=== PATIENT | female | born 1970 | race Caucasian/White ===

== ENCOUNTER 2019-02-26 10:32 | Day surgery (SDC) | payer OTHER, SELFPAY ==
--- NOTE | 2019-02-24 17:12 | PCM.HP.BLA ---
History and Physical Date of Admission: 02/26/19 Pre-Op History and Physical ? HPI: The patient is a 49 year old female presenting for pre-operative visit. She is scheduled for?hysteroscopy, dilation and curettage, possible polyp resection, for?menorrhagia, iron deficiency anemia due to chronic blood loss and thickened endometrial lining on ultrasound on?02/26/19. ??Procedure discussed along with risks, benefits and complications. ?Other alternatives discussed for management. Consent form signed??Yes.? PAST?MEDICAL?HISTORY PAST MEDICAL HISTORY Diagnosis Date ? Excessive or frequent menstruation ? ? Heavy periods ? FRACTURE 2002 ? WRIST ? Gestational diabetes 01/28/2013 ? Iron deficiency anemia 07/24/2011 ? Other and unspecified ovarian cyst ? ? Ovarian cyst ? Papanicolaou smear of cervix with atypical squamous cells cannot exclude high grade squamous intraepithelial lesion (ASC-H) ? ? Rubella non-immune status ? ? Spontaneous miscarriage 03/2012 ? ? PAST?SURGICAL?HISTORY PAST SURGICAL HISTORY Procedure Laterality Date ? DELIVERY ONLY ? 04/15/13 ? , low transverse ? COLPOSCOPY (VAGINOSCOPY) ? 07/21/2008 ? Colposcopy ? ENDOMETRIAL BIOPSY ? 06/23/2008 ? LIGATE FALLOPIAN TUBE ? 04/15/13 ? Tubal ligation ? ? CURRENT?MEDICATIONS Current Outpatient Medications Medication Sig Dispense Refill ? PNV no.95/ferrous fum/folic ac ( ORAL) Take by mouth. ? ? ? norethindrone (AYGESTIN) 5 mg tablet Take 1 tablet TID until bleeding stops, the 1 tablet BID x 3 days, then 1 tablet daily x 3 days 35 tablet 0 ? FERROUS SULFATE (FE-TABS ORAL) Take by mouth as needed. ferosol ? No current facility-administered medications for this visit.? ? ALLERGIES:?Patient has no known allergies. ? PERSONAL HISTORY:? 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 control/protection: Tubal Ligation ??Lifestyle ?Physical activity: ?Days per week: Not on file ?Minutes per session: Not on file ?Stress: Not on file ??Relationships ?Social connections: ?Talks on phone: Not on file ?Gets together: Not on file ?Attends latter day service: Not on file ?Active member of club or organization: Not on file ?Attends meetings of clubs or organizations: Not on file ?Relationship status: Not on file ?Intimate partner violence: ?Fear of current or ex partner: Not on file ?Emotionally abused: Not on file ?Physically abused: Not on file ?Forced sexual activity: Not on file ??Other Topics ?Concerns: ?Not on file ??Social History Narrative ?Not on file ? FAMILY HISTORY:? FAMILY?HISTORY FAMILY HISTORY Problem Relation Age of Onset ? Diabetes Mother ?Type 2 ? Thyroid Mother ? ? Hypertension Father ? ? No Known Problems Sister ? ? No Known Problems Sister ? ? No Known Problems Brother ? ? No Known Problems Son ? ? No Known Problems Son ? ? Breast Cancer Maternal Grandmother ? ? Diabetes Maternal Grandmother ?Type 2 ? Colon Cancer Maternal Grandfather ? ? Alzheimer's Disease Paternal Grandfather ? ? No Known Problems Son ? ? REVIEW OF SYMPTOMS: GENERAL: denies fevers or chills ENDOCRINOLOGY: has not been on steroids Cardiology : denies palpitations or chest pain Respiratory: denies SOB or cough Hematology: denies history of prolonged bleeding or easy bruising or VTE Allergy: Denies history of personal or family history of allergy to anesthesia ? ? PHYSICAL EXAMINATION: ? VITALS:?Height 5' 7 (1.702 m), weight 204 lb (92.5 kg), last menstrual period 02/22/2019. ? GENERAL:??The patient is well nourished, well hydrated in no acute distress. ?, The patient is oriented to time, place, and person. LUNGS:?Clear to auscultation bilaterally. no wheezes, rhonchi or rales HEART:?Regular rate and rhythm, Normal heart sounds and No murmurs or gallops ? IMPRESSION:?Metromenorrhagia, iron deficiency anemia due to chronic blood loss, thickened endometrium on ultrasound ? PLAN:???The risks/benefits/alternatives and personal involved for the planned?hysteroscopy, dilation and curettage and possible polyp resection?were reviewed with the patient. Her questions were answered to her satisfaction and she desires to proceed. ?Consent was signed. ?I reviewed with her postop instructions and expectations. ? ? I have reviewed and updated past medical and surgical history, medications and allergies? This history and physical was completed in my office on 02/24/2019 Marleni Prescott M.D.
--- NOTE | 2019-02-26 | EMB_PTH ---
PATIENT: ELISE BRITO LOC: [facility] [place][id number] AGE/SX: 49/F ROOM: RE02/26/[address]: Dr. Marleni Prescott MD : 1970 BED: DIS: 02/26/2019 SPEC #: [id number] RECD: 02/26/19 15:50 STATUS: MICHAEL BULLOCK #: [id number] TYLER: 02/26/19 00:[address]: Marleni Prescott DEPT: SURGICAL PATHOLOGY RECD BY: Carrillo Anne ENTERED: 02/27/19 08:51 SP TYPE: ENDOM BX/C MENG DR: Dr. Benito Duff III, MD Tissues: Endometrium, NOS Procedures: Surgery Specimen Level IV HEADER OPERATION: Hysteroscopy, dilation and curettage PRE-OP DIAGNOSIS: Metromenorrhagia, iron deficiency anemia due to chronic blood loss, thickened endometrium on ultrasound TISSUE SUBMITTED: Endometrial curettings MICROSCOPIC DIAGNOSIS Endometrial curettings: Dyssynchronous endometrium consisting of early secretory endometrium and mildly disordered proliferative endometrium with extensive granular stromal breakdown. Fragments of benign ecto and endocervical epithelium. KAREEM:amrita 03/02/19 MICROSCOPIC DESCRIPTION Slides are reviewed. GROSS DESCRIPTION Received in formalin is one container labeled with the patient name and designated endometrial curettings. The specimen consists hemorrhagic soft tissue measuring in aggregate 5 x 3 x 0.3 cm. The specimen is totally submitted in 2 cassettes. /KAREEM:amrita 02/27/19 TC: 5 CPT: 73843
[2019-02-26 11:06] VITALS: BP 143/73; PULSE 83; RESP 16; TEMP 37.2; O2SAT 99; BMI 31.8
[2019-02-26 11:19] LABS: Internal QC Validated? YES +Cl - CLEAR BKGD; Pregnancy, Urine Negative Negative
[2019-02-26] MEDS: Lactated Ringers 1,000 ML 100 ML IV (11:19)
--- NOTE | 2019-02-26 14:06 | DCINST_ITS ---
Discharge Diet: No Restrictions Discharge Activity: Return to Normal Activity, May Shower, May Take a Tub Bath - in 2 weeks. May resume sexual activity in: 1 week Call your doctor if your incision/area has: Sudden Increased Bleeding, Foul Smelling Discharge Call your doctor if you observe: Fever of 101 or Higher, Using more than one pad per hour - for 2 hrs in a row Allergies/Adverse Reactions: Allergies No Known Allergies Allergy (Verified 02/26/19 11:05) Medications to take at Discharge Ferrous Sulfate 325 mg PO BID #60 tablet. 02/22/17 Pnv No.95/Ferrous Fum/Folic AC [ Caplet] 1 ea PO DAILY 02/25/19 Ibuprofen [Motrin] 600 mg PO Q6H PRN #60 tab 02/26/19 The following prescriptions were given: Ibuprofen [Motrin] 600 mg PO Q6H PRN #60 tab PRN Reason: Pain Transmission Status: Pending to [facility] Primary Care Physician: Benito Duff III, MD [Primary Care Provider] - Test Results: Test results from this visit will be discussed in further detail at your follow- up appointment, if applicable. Please Follow Up With: Marleni Prescott MD - [phone] When: 2-4 weeks or as needed
--- NOTE | 2019-02-26 14:07 | PCM.OPRPT ---
Report of Operation Date of Procedure: 02/26/19 Pre-Operative Diagnosis: menorrhagia, fe def anemia due to chronic blood loss Post-Operative Diagnosis: same Surgery/Procedure Performed:: hysteroscopy D&C Description of Surgical Findings:: lush Endometrium, normal-appearing cervix. prolapse of the cervix to 2 cm beyond the hymenal ring. Uterus sounded to 11 cm possible small polypoid appearing lesion in the left fundal area. 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 The weighted speculum was placed in the vagina and the anterior lip of the cervix was grasped with a single-tooth tenaculum. A paracervical block was administered with 15 cc of 1% lidocaine with 1-100,000 epinephrine solution. The cervix was dilated serially with Hegar dilators. The 5mm hysteroscope was placed into the uterine cavity and the above findings were noted. Bilateral tubal ostia were identified. The hysteroscope was removed. A gentle sharp curettage was done of the uterine cavity. The small polypoid lesion was removed with they hysteroscopic grasper under direct visualization. The instruments were removed from the vagina. The specimen was handed off and sent to pathology. All sponge and needle counts were correct. Vaginal sweep was performed by me. The patient was awakened and taken to the recovery room in stable condition. Hysteroscopic ins: 500cc normal saline Hysteroscopic outs:300cc Findings: Endometrial cavity: lush endometrium, no fibroids noted, small polypoid lesion left upper fundus Cervix: [normal] Vagina: [normal] Grafts/Implants Used: none - Complications none - Admit VTE Documentation VTE Present on Admission: No VTE Mechan Device Prophylaxis: SCD's VTE Pharm Prophylaxis ordered?: No Reason prophylaxis not ordered:: Procedure Not Indicated
[2019-02-26 14:10] VITALS: BP 101/67; BP 143/73; PULSE 85; RESP 16; TEMP 37.1; O2SAT 97
[2019-02-26 14:15] VITALS: BP 143/73; BP 98/68; PULSE 84; RESP 18; O2SAT 97
[2019-02-26 14:20] VITALS: BP 100/62; BP 143/73; PULSE 84; RESP 18; O2SAT 97
[2019-02-26 14:25] VITALS: BP 102/65; BP 143/73; PULSE 82; RESP 18; TEMP 36.7; O2SAT 97
[2019-02-26 14:57] VITALS: BP 143/73
== END 2019-02-26 15:22 | disposition home or self-care (01) ==
LOC: SDC 10:36 → AC 10:38
PROVIDERS: Family Provider Family Medicine; PCP Family Medicine; Referring Provider Obstetrics & Gynecology; Visit Provider Obstetrics & Gynecology
PROC: 0UDB8ZZ Extraction of Endometrium, Via Natural or Artificial Opening Endoscopic (ICD-10-PCS; CPT 58558; principal; 2019-02-26 11:50)
DX: N92.1 Excessive and frequent menstruation with irregular cycle (principal); R93.89 Abnormal findings on diagnostic imaging of other specified body structures; D50.0 Iron deficiency anemia secondary to blood loss (chronic); Z79.899 Other long term (current) drug therapy
CPT/HCPCS: 00952; 58558; 81025; 88305; J1756; J7120; J2405

== ENCOUNTER 2021-05-31 17:33 | Emergency (ER) | payer OTHER, SELFPAY ==
[2021-05-31 17:34] VITALS: BP 144/106; PULSE 123; RESP 16; TEMP 36.6; O2SAT 93; BMI 32.1
[2021-05-31 17:38] VITALS: BP 144/97; PULSE 118; RESP 18; TEMP 36.6; O2SAT 93
--- NOTE | 2021-05-31 17:49 | RAD_ITS ---
STUDY: X-RAY CHEST REASON FOR EXAM: Female, 51 years old. cough TECHNIQUE: Frontal portable view of the chest COMPARISON: None. FINDINGS: Pulmonary volumes are low and there are multifocal irregular airspace opacities. There is no pneumothorax, pulmonary edema or pleural effusions. Serene are enlarged. RAD/Chest 1 View (Portable) IMPRESSION: Covid pneumonia. Possibly pulmonary arterial hypertension. Pulmonary referral advised. Electronically Signed: Toby Peck MD at 19:44 EST Tel , Service support ,
--- NOTE | 2021-05-31 17:49 | EKG12_ITS ---
Test Reason : CP Blood Pressure : / mmHG Vent. Rate : 106 BPM Atrial Rate : 106 BPM P-R Int : 152 ms QRS Dur : 078 ms QT Int : 338 ms P-R-T Axes : 034 002 031 degrees QTc Int : 448 ms Sinus tachycardia Otherwise normal ECG Confirmed by LEAH CAMPBELL, NAVNEET ([id number]), editor index NEREIDA ACOSTA ([id number]) on 06/02/2021 11:43:32 AM Referred By: DANIE Confirmed By:NAVNEET LYNN MD
--- NOTE | 2021-05-31 17:55 | NURSING ---
NO OLD EKGS
[2021-05-31 18:22] LABS: Absolute Lymphocyte Count 1.02 X10^3/uL (0.83-4.51); Absolute Neutrophil Count 1.7 X10^3/uL (2.0-7.7); Basophil# 0.02 X10^3/uL; Basophil% 0.6 % (0-1); Eosinophil# 0.04 X10^3/uL; Eosinophils% 1.2 % (0-5); Hematocrit 41.9 % (37-47); Hemoglobin 14.2 g/dL (12.0-15.0); Lymphocyte # 1.02 X10^3/ul (0.83-4.51); Lymphocyte % 30.4 % (19-41); Mean Corp Hgb Conc 33.9 g/dL (32-36); Mean Corpuscular Hgb 28.5 pg (27.0-32.0); Mean Corpuscular Volume 84.1 fL (81-99); Mean Platelet Vol. 10.4 fl (6.2-12.0); Monocyte# 0.54 X10^3/uL; Monocyte% 16.1 % (0-10); NRBC Flagged by Analyzer 0 % (0-5); Neutrophil # 1.72 X10^3/uL (2.7-7.7); Neutrophil % 51.1 % (47-70); POSITIVE MORPHOLOGY YES; Platelet Count 307 K/mm3 (150-450); RBC Distribution Width CV 13.1 % (11.6-14.6); RBC Distribution Width SD 40.2 fl (35.1-43.9); Red Blood Count 4.98 M/mm3 (4.2-5.4); White Blood Count 3.4 K/mm3 (4.4-11.0)
[2021-05-31 18:24] VITALS: O2SAT 94
[2021-05-31 18:24] LABS: Differential Indicated SCAN CRITERIA MET
[2021-05-31 18:38] VITALS: BP 128/93; PULSE 104; RESP 21; TEMP 36.4; O2SAT 93
[2021-05-31 18:41] LABS: ALB/GLOB Ratio 0.5 RATIO (0.9-2.4); AST(SGOT) 24 U/L (15-37); Alanine Aminotransfer ALT/SGPT 23 U/L (13-56); Albumin, Serum 2.7 g/dL (3.2-5.0); Alkaline Phosphatase 89 U/L (45-117); Anion Gap 11 (5-15); BUN 17 mg/dL (7-18); BUN/Creat Ratio 23.2 RATIO (10-20); Calcium,Total 9.3 mg/dL (8.5-10.1); Chloride 100 mmol/L (98-107); Creatinine, Serum 0.73 mg/dL (0.55-1.02); EST Glomerular Filtration Rate 90 mL/min (>60); Est Glom Filt Rate - Afr Amer 109 mL/min (>60); Estimated Creatinine Clearance 90.65 ml/min; Glucose 150 mg/dL (74-106); Potassium 3.2 mmol/L (3.5-5.1); Protein, Total 7.7 g/dL (6.4-8.2); Sodium Level 139 mmol/L (136-145); Troponin-I HS 4 pg/mL (3.0-54.0)
[2021-05-31 18:51] LABS: Differential Comment SCANNED; Reactive Lymphocyte 1+
--- NOTE | 2021-05-31 19:01 | CT_ITS ---
STUDY: CTA CHEST REASON FOR EXAM: Female, 51 years old. chets pain RADIATION DOSAGE (If Supplied By Facility): CTDIvol = ( 11.26 ) mGy, DLP = ( 457.70 ) mGycm TECHNIQUE: The examination was performed with the intravenous administration of IV 100mL Isovue-300. Post-processing of the angiographic images was performed, with multiplanar reformation and 3D reconstruction. Individualized dose optimization techniques were used for this CT. COMPARISON: None. FINDINGS: There are multifocal interstitial infiltrates with groundglass opacities in the upper and lower lobes as well as more pronounced focal consolidation in the lower lobes consistent with Covid 19 pneumonia Normal enhancement of the main pulmonary artery and right and left pulmonary arteries. Normal enhancement of the bilateral peripheral pulmonary arteries. There is no demonstrated pulmonary embolism. Minor atherosclerotic changes of the aorta without evidence for aneurysm There is no demonstrated aortic dissection. Normal heart and pericardium. Normal mediastinum. Normal hilar regions. Normal visualized trachea and bronchi. Normal pleura. Normal chest wall structures. Dorsal spine demonstrates degenerative change Multiple tiny calcified gallstones without evidence for acute inflammation. Nonspecific fatty infiltrated liver. CT/CTA Chest W/WO Contrast IMPRESSION: Findings consistent with Covid 19 pneumonia within both upper and lower lobes. No evidence for pulmonary embolus Incidental finding of cholelithiasis without evidence for acute inflammation Electronically Signed: Jeremy Flores MD at 20:35 EST , Service support ,
--- NOTE | 2021-05-31 19:11 | EDS_ITS ---
HPI History of Present Illness Chief Complaint: Shortness of Breath Narrative Narrative: 51-year-old female presenting with chest discomfort and shortness of breath. She states her chest gets tight when she starts to ambulate. She states is also been sick for a month. Initially she had fevers, chills, body aches. She states that on the she tested for Covid and had a positive and a negative test. She has quarantine. She is day 10 since that time. She states all of her symptoms resolved. She states he only has a medical history of iron deficiency anemia. She also states this is recurrent. She denies cardiac history. She is non-smoker. She denies any pulmonary history. [facility] Medical History Anemia Gestational diabetes Gestational HTN Home Medications ferrous sulfate 325 mg PO BID #60 tablet. 02/22/17 [Rx Last Taken Unknown] Allergy/AdvReac Type Severity Reaction Status Date / Time No Known Allergies Allergy Verified 05/31/21 17:38 Social History Smoking Status: Never smoker ROS ROS ED Constitutional Constitutional ED: Denies chills or fever(s) Eyes Eyes: Denies blurry vision or change in vision ENT ENT ED: Denies rhinorrhea or sore throat Cardiovascular Cardiovascular: Denies chest pain or palpitations Respiratory/Chest Respiratory/Chest: Reports cough, dyspnea and dyspnea on exertion Gastrointestinal Gastrointestinal: Denies abdominal pain, nausea or vomiting Genitourinary Genitourinary ED: Denies dysuria or hematuria Musculoskeletal Musculoskeletal: Denies arthralgias or myalgias Integumentary Denies abscess or rash Neurologic Neurologic: Denies headache(s) or paresthesias EXAM Physical Exam Const Vital Signs: 05/31/21 17:34 05/31/21 17:38 05/31/21 18:24 Temperature 97.8 F 97.8 F Temperature Source Temporal Oral Pulse Rate 123 H 118 H Respiratory Rate 16 18 Respiratory Effort Non-Labored Short of Breath Respiratory Depth Normal Respiratory Pattern Normal Blood Pressure 144/106 H 144/97 H Blood Pressure Mean 118 112 Pulse Ox 93 93 Oxygen Delivery Method Room Air Room Air Room Air 05/31/21 18:38 05/31/21 21:05 Temperature 97.5 F L 99.2 F H Temperature Source Temporal Temporal Pulse Rate 104 H 88 Respiratory Rate 21 H 19 H Respiratory Effort Respiratory Depth Respiratory Pattern Blood Pressure 128/93 H 132/70 H Blood Pressure Mean 104 90 Pulse Ox 93 97 Oxygen Delivery Method Room Air Room Air Positive well nourished General Appearance ED: NAD; Negative for pallor HEENT Reports moist mucous membranes atraumatic Eyes PERRL and EOMs intact bilaterally Resp normal respiratory effort and clear to auscultation bilaterally Cardio regular rate Rate: bradycardia GI non-tender and non-distended Palpation: soft Neuro oriented x3 and CN's II-XII intact bilaterally Sensorium / Orientation: alert Psych mental status grossly normal Thought Process: normal thought process Skin General Skin Exam: Negative for jaundice or pallor MDM MDM MDM Narrative Medical decision making narrative: Patient presenting with chest tightness on ambulation. She is on day 10 of positive Covid testing. She also states that she has been sick for a month and she is unclear when she started getting sick. Her fevers and chills have resolved. She does not have any more nausea or vomiting and she feels otherwise well except for chest tightness with exertion. Her EKG on my interpretation shows a sinus tachycardia with a ventricular to 106 bpm without sign of ischemic change. Chest x-ray on my interpretation shows pulmonary infiltrates consistent with COVID-19. Radiologist agree. CBC shows that she is leukopenic and lymphopenic. Creatinine is normal. Potassium slightly low at 3.2. LFTs are normal. High-sensitivity troponin is 4. Patient is maintaining oxygen sats of 93% steadily. She does not appear to be dyspneic or in any distress. Given her atypical chest pain and shortness of breath I did obtain a CTA which did not show pulmonary emboli. It does show pulmonary infiltrates consistent with COVID-19 on the radiologist interpretation. Given that patient is not hypoxic and not requiring oxygen I think she stable for discharge at this time. She will follow-up with her PCP to ensure resolution. She is given return precautions. Impression: 1. COVID-19 pneumonitis 2. Chest pain Lab Data Labs: Laboratory Results - last 24 hr 05/31/21 05/31/21 18:10 18:10 WBC 3.4 L RBC 4.98 Hgb 14.2 Hct 41.9 MCV 84.1 MCH 28.5 MCHC 33.9 RDW Std Deviation 40.2 RDW Coeff of Mindy 13.1 Plt Count 307 MPV 10.4 Immature Gran % (Auto) 0.600 Neut % (Auto) 51.1 Lymph % (Auto) 30.4 [place] % (Auto) 16.1 H Eos % (Auto) 1.2 Baso % (Auto) 0.6 Absolute Neuts (auto) 1.7 L Absolute Lymphs (auto) 1.02 Nucleated RBC % 0 Differential Comment SCANNED Reactive Lymphocytes 1+ Sodium 139 Potassium 3.2 L Chloride 100 Carbon Dioxide 28.0 Anion Gap 11 BUN 17 Creatinine 0.73 Estim Creat Clear Calc 90.65 Est GFR (MDRD) Af Amer 109 Est GFR (MDRD) Non-Af 90 BUN/Creatinine Ratio 23.2 H Glucose 150 H Calcium 9.3 Total Bilirubin 0.30 AST 24 ALT 23 Alkaline Phosphatase 89 Troponin I High Sens 4 Total Protein 7.7 Albumin 2.7 L Globulin 5.0 H Albumin/Globulin Ratio 0.5 L Radiography Diagnostic Testing: Clinical Impression(s) from Imaging Studies Chest X-Ray 05/31/21 17:49 IMPRESSION: Covid pneumonia. Possibly pulmonary arterial hypertension. Pulmonary referral advised. Electronically Signed: Toby Peck MD at 19:44 EST Tel , Service support , Chest CTA 05/31/21 19:01 IMPRESSION: Findings consistent with Covid 19 pneumonia within both upper and lower lobes. No evidence for pulmonary embolus Incidental finding of cholelithiasis without evidence for acute inflammation Electronically Signed: Jeremy Flores MD at 20:35 EST , Service support , Discharge Plan Triage Chief Complaint: Shortness of Breath ED Provider: Arnie Layton Dx/Rx/DC Orders Instructions: Coronavirus Disease 2019 (COVID-19): Caring for Yourself or Others Prescriptions: No Action ferrous sulfate 325 MG tablet,delayed release (DR/EC) 325 mg PO BID Qty: 60 RF: 1 Primary Care Provider: Care Physician,No Primary Referrals: Radha Aguirre DO [STAFF PHYSICIAN] - As soon as possible Care Physician,No Primary [Primary Care Provider] - Disposition Disposition: Home, Self Care Discharge Date/Time: 05/31/21 21:06
[2021-05-31 21:05] VITALS: BP 132/70; BP 132/97; PULSE 80; PULSE 88; RESP 19; TEMP 37.3; O2SAT 97
== END 2021-05-31 21:06 | disposition home or self-care (01) ==
PROVIDERS: Emergency Provider Student in an Organized Health Care Education/Training Program
DX: U07.1 COVID-19 (principal); J12.82 Pneumonia due to coronavirus disease 2019; R07.89 Other chest pain; D50.9 Iron deficiency anemia, unspecified; Z79.899 Other long term (current) drug therapy
CPT/HCPCS: 71045; 71275; 80053; 84484; 85025; 93005; 99284; Q9967

== ENCOUNTER 2024-07-26 20:06 | Emergency (ER) | payer OTHER, SELFPAY ==
[2024-07-26 20:07] VITALS: BP 161/113; PULSE 98; RESP 15; TEMP 36.4; O2SAT 98; O2SAT 99; BMI 32.4
--- NOTE | 2024-07-26 20:26 | RAD_ITS ---
EXAM: XR RIGHT KNEE COMPLETE, 4 OR MORE VIEWS CLINICAL INDICATION: pain TECHNIQUE: Four or more views of the right knee. COMPARISON: No relevant prior studies available. FINDINGS: BONES/JOINTS: Healing proximal fibular fracture. Preservation of the joint space. No sclerotic or destructive changes observed. SOFT TISSUES: Unremarkable. No soft tissue swelling or gas. No radiopaque foreign body. RAD/Knee 4 or More Views IMPRESSION: Healing proximal fibular fracture. Electronically Signed: Celestino Atkinson MD at 21:10 EST ,
--- NOTE | 2024-07-26 20:26 | RAD_ITS ---
EXAM: XR LEFT ELBOW COMPLETE, 3 OR MORE VIEWS CLINICAL INDICATION: injury fall with elbow pain. TECHNIQUE: Frontal, lateral and oblique views of the left elbow. COMPARISON: No relevant prior studies available. FINDINGS: BONES/JOINTS: Unremarkable. There is no displacement of the anterior or posterior fat pads. No acute fracture. No subluxation. Normal alignment. Preservation of the joint space. No destructive or sclerotic lesions. SOFT TISSUES: Unremarkable. No soft tissue swelling or gas. No radiopaque foreign body. RAD/Elbow min 3 Views IMPRESSION: Negative left elbow. Electronically Signed: Celetsino Atkinson MD at 21:02 EST ,
--- NOTE | 2024-07-26 20:26 | RAD_ITS ---
EXAM: XR LEFT WRIST COMPLETE, 3 OR MORE VIEWS CLINICAL INDICATION: injury TECHNIQUE: Frontal, lateral and oblique views of the left wrist. COMPARISON: No relevant prior studies available. FINDINGS: BONES/JOINTS: Unremarkable. No acute fracture. No subluxation. Normal alignment. Preservation of the joint space. No sclerotic or destructive changes observed. SOFT TISSUES: Unremarkable. No soft tissue swelling or gas. No radiopaque foreign body. RAD/Wrist min 3 Views IMPRESSION: Negative left wrist x-rays. Electronically Signed: Celestino Atkinson MD at 21:07 EST ,
--- NOTE | 2024-07-26 20:27 | EDS_ITS ---
HPI HPI - Fall History of Present Illness Chief Complaint: Fall Informant: patient and spouse/S.O. Narrative Narrative: 54-year-old female was getting out of her truck tonight, apparently put her feet down on ice and slipped and fell, hitting her back directly on the running board of the truck and also injuring her left elbow and wrist. She states for the past 7 or 8 days, she incidentally has been having pain in her right knee which she did not injure tonight, it started when she stood up off of the couch a week ago. She has been treating it with a brace and ibuprofen. She states it has been in the medial aspect of her right knee where the pain has been, and it has been locally swollen but not diffusely swollen. Since her fall, she denies hitting her head or having a headache, she denies any numbness or tingling in her arms or legs, no weakness, no bowel or bladder dysfunction, or perineal anesthesia. She denies any abdominal pain but the pain comes around to her right side a little bit and it gets worse when she raises her right arm up even though her right arm is not bothering her. [facility] Medical History Anemia Gestational diabetes Gestational HTN Home Medications ?Medication ?Instructions ?Recorded ?Last Taken ?Type ferrous sulfate 325 mg (65 mg 325 mg PO BID ##60 02/22/17 Unknown Rx iron) tablet,delayed release tramadol 50 mg tablet 50 mg PO Q6H PRN pain 3 days #12 07/26/24 Unknown Rx tabs Allergy/AdvReac Type Severity Reaction Status Date / Time No Known Allergies Allergy Verified 07/26/24 20:07 Social History Smoking Status: Never smoker ROS ROS ED Constitutional Constitutional ED: Denies chills or fever(s) Eyes Eyes: Denies change in vision Cardiovascular Cardiovascular: Denies chest pain Respiratory/Chest Respiratory/Chest: Denies dyspnea Gastrointestinal Gastrointestinal: Denies abdominal pain, nausea or vomiting Genitourinary Genitourinary ED: Reports other Details: No bowel or bladder dysfunction Musculoskeletal Musculoskeletal: Reports back pain and extremity pain; Denies neck pain Integumentary Denies Abrasions, rash or wounds Neurologic Neurologic: Denies headache(s), paresthesias or weakness EXAM Physical Exam Const Vital Signs: 07/26/24 20:07 07/26/24 20:07 Temperature 97.5 F L Temperature Source Temporal Pulse Rate 98 Respiratory Rate 15 Respiratory Effort Normal Non-Labored Respiratory Depth Normal Respiratory Pattern Normal Blood Pressure 161/113 H Blood Pressure Mean 129 Pulse Ox 98 99 Oxygen Delivery Method Room Air Room Air Positive well nourished and well developed General Appearance ED: well developed and NAD HEENT Reports normocephalic atraumatic Eyes PERRL and EOMs intact bilaterally Neck full ROM and supple Resp normal respiratory effort, no retractions and clear to auscultation bilaterally Resp Narrative: No splinting with deep inspiration Effort and Inspection: able to speak in complete sentences Cardio regular rate and regular rhythm Rate: Negative for tachycardic GI non-tender and non-distended Back/Spine Back/Spine Narrative: Broad-based contusion in her mid thoracic back, it is centered on her back around the T6-8 area all of which is tender. There is no palpable step-off, no visible deformity, no crepitance and no subcutaneous emphysema. She has midline tenderness that is less severe above and below this, but all within the mid thoracic area. There is no tenderness in the lumbar area or the cervical area, nor the extremes of the thoracic spine. Extremity Extremity Narrative: Abrasion and tenderness left olecranon, when she extends the elbow all of the way which she is able to do without difficulty or limitation, the olecranon moves away from the abrasion and is nontender. There is no tenderness of the radial head with supination and pronation which she is able to do painlessly. There are some mild tenderness at the volar aspect of the left wrist, more to the ulnar portion of the carpus, but the distal radius and distal ulna are nontender, she can move the wrist in all directions without difficulty and there is no tenderness in the snuffbox or anywhere else in the hand or wrist. With regards to the right knee, there is no effusion. Extensor mechanism is intact she can extend and bend fully without limitation. She has tenderness at the medial joint line of the left knee, the plica is nontender and the patella is nontender. There is no deformity. All ligaments are stable with short en dpoints no significant discomfort with stressing including negative anterior and posterior drawer signs. Neuro oriented x3, no focal motor deficits and no sensory deficits noted Erasto Coma Scale: document GCS findings Spontaneous Obeys Commands Oriented 15 Sensorium / Orientation: alert Psych mental status grossly normal and thought process normal Skin no wounds Skin Narrative: Contusion on back, abrasion left olecranon, no other skin injuries. Rashes: no rashes MDM MDM MDM Narrative Medical decision making narrative: My clinical suspicion for left upper extremity bony fracture was low, given the acute injuries obtained three-view x-ray series of the left elbow and 3 view x- ray series of the left wrist, both negative for acute fractures or dislocation to my interpretation. 3 view x-ray of the thoracic spine is negative for acute fracture on my interpretation, radiology is in agreement. With the guards to the patient's right knee pain separate from this fall/injury, I suspect she has a mild sprain. I am less suspicious for a meniscal injury given that she has not developed an effusion and does not have 1 now clinically, but I obtained a 4 view x-ray series of the right knee in order to evaluate for fracture or effusion, and on my interpretation they are negative. Radiology in agreement adding that she appears to have an old fracture of the fibular head. She does not have any pain or tenderness there so that is an incidental finding. Patient reassured, she was given pain medication here, offered a prescription and advised to follow-up within the next week if not improving. Radiography Diagnostic Testing: Clinical Impression(s) from Imaging Studies Elbow X-Ray 07/26/24 20:26 IMPRESSION: Negative left elbow. Electronically Signed: Celestino Atkinson MD at 21:02 EST , Knee X-Ray 07/26/24 20:26 IMPRESSION: Healing proximal fibular fracture. Electronically Signed: Celestino Atkinson MD at 21:10 EST , Wrist X-Ray 07/26/24 20:26 IMPRESSION: Negative left wrist x-rays. Electronically Signed: Celestino Atkinson MD at 21:07 EST , Thoracic Spine X-Ray 07/26/24 20:40 IMPRESSION: There are degenerative changes as noted above. Electronically Signed: Celestino Atkinson MD at 21:09 EST , Discharge Plan Triage Chief Complaint: Fall ED Provider: Yuri Hall Dx/Rx/DC Orders Clinical Impression: Contusion of back, Contusion of elbow, left, Left wrist sprain, Right knee sprain, Fall from slipping on ice Instructions: ED Back Contusion, ED Knee Sprain Prescriptions: New tramadol 50 mg tablet 50 mg PO Q6H PRN (Reason: pain) 3 Days Qty: 12 0RF No Action ferrous sulfate 325 MG tablet,delayed release (DR/EC) 325 mg PO BID Qty: 60 1RF Primary Care Provider: Cony Erwin NP Referrals: Cony Erwin NP, ELECTRIC DISTRIBUTION ENGINEER-C [Primary Care Provider] - 1 Week if not improving Print Language: Albanian Disposition Disposition: Home, Self Care
[2024-07-26] MEDS: Ibuprofen 600 MG Tablet PO (20:30)
[2024-07-26] MEDS: traMADol 50 MG Tablet PO (20:31)
--- NOTE | 2024-07-26 20:40 | RAD_ITS ---
STUDY: X-RAY - THORACIC SPINE REASON FOR EXAM: Female, 54 years old. injury TECHNIQUE: XR Spine Thoracic 2 Views COMPARISON: None FINDINGS: Normal kyphosis of the thoracic spine. There is no substantial scoliosis. There is multilevel endplate spondylosis of the thoracic vertebrae. There is multilevel disc space narrowing of the thoracic spine. The soft tissue structures are unremarkable. RAD/Thoracic Spine 2 Views IMPRESSION: There are degenerative changes as noted above. Electronically Signed: Celestino Atkinson MD at 21:09 EST ,
[2024-07-26 21:29] VITALS: BP 139/99; PULSE 78; RESP 18; TEMP 36.1; O2SAT 97
== END 2024-07-26 21:35 | disposition home or self-care (01) ==
PROVIDERS: Emergency Provider Emergency Medicine; PCP Nurse Practitioner Primary Care; Visit Provider Emergency Medicine
DX: S20.224A Contusion of middle back wall of thorax, initial encounter (principal); S63.502A Unspecified sprain of left wrist, initial encounter; S83.91XA Sprain of unspecified site of right knee, initial encounter; S50.02XA Contusion of left elbow, initial encounter; W00.0XXA Fall on same level due to ice and snow, initial encounter
CPT/HCPCS: 72070; 73080; 73110; 73564; 99283

== ENCOUNTER 2025-05-13 09:52 | Day surgery (SDC) | payer OTHER, SELFPAY ==
--- NOTE | 2025-05-12 10:57 | HP.PCM_ITS ---
History and Physical Date of Admission: 05/13/25 HPI: The patient is a 55 year old female presenting for pre-operative visit. She is scheduled for Hysteroscopy D&C, for PMB on 05/13/25. Procedure discussed along with risks, benefits and complications. Other alternatives discussed for management. Consent form signed? Yes. PAST MEDICAL HISTORY PAST MEDICAL HISTORYDiagnosisDate•Excessive or frequent menstruation Heavy periods•DAPHAILB62/01/2003 WRIST•Gestational diabetes (HCC)01/28/2013•Hyperlipidemia, unspecified hyperlipidemia type •Iron deficiency [id number]/24/2011•Other and unspecified ovarian cyst Ovarian cyst•Papanicolaou s mear of cervix with atypical squamous cells cannot exclude high grade squamous intraepithelial lesion (ASC-H) •Polycythemia •Rubella non-immune status •Spontaneous miscarriage ([facility])03/08/2012•Type 2 diabetes mellitus without complication, without long-term current use of insulin (HCC) PAST SURGICAL HISTORY PAST SURGICAL HISTORYProcedureLateralityDate• DELIVERY ONLY 04/15/2013 , low transverse•COLPOSCOPY CERVIX UPPER/ADJACENT VAGINA 07/21/2008 Colposcopy•ENDOMETRIAL BIOPSY 03/12/2025•ENDOMETRIAL BX W/WO ENDOCERVIX BX W/O DILAT SPX 06/23/2008•HYSTEROSCOPY BX ENDOMETRIUM&/POLYPC W/WO D&C 02/26/2019•LIG/TRNSXJ FLP TUBE ABDL/VAG APPR UNI/BI 04/15/2013 Tubal ligation CURRENT MEDICATIONS Current Outpatient MedicationsMedicationSigDispenseRefill•rosuvastatin (CRESTOR) 10 mg tabletTake 1 tablet by mouth daily at bedtime. (Patient taking differently: Take 10 mg by mouth daily at bedtime. Will start after surgery 05/13/2025)90 tablet3•amLODIPine (NORVASC) 5 mg tabletTake 1 tablet by mouth once daily.90 tablet3•metFORMIN (GLUCOPHAGE) 500 mg tabletTake 2 tablet daily at dinner for 2 weeks, then take 2 tablet twice [id number] tablet3 No current facility-administered medications for this visit. ALLERGIES: Patient has no known allergies. PERSONAL HISTORY: [SOCIAL HISTORY] [SOCIAL HISTORY] Social History Tobacco Use • Smoking status: Never • Smokeless tobacco: Never Vaping Use • Vaping status: Never Used Substance Use Topics • Alcohol use: Yes Comment: Rarely • Drug use: Never FAMILY HISTORY: FAMILY HISTORY FAMILY HISTORY ProblemRelationAge of Onset•DiabetesMother Type 2 •ThyroidMother •DementiaMother •HypertensionFather •other (Lung condition)Father •No Known ProblemsSister •No Known ProblemsSister •No Known ProblemsBrother •Breast CancerMaternal Grandmother •DiabetesMaternal Grandmother Type 2•Colon CancerMaternal Grandfather •No Known ProblemsPaternal Grandmother •Alzheimer's DiseasePaternal Grandfather •Skin CancerPaternal Grandfather •other (testicular cancer)Son currently in remission•other (One small kidney, one large kidney)Son •No Known ProblemsSon REVIEW OF SYMPTOMS: GENERAL: denies fevers or chills ENDOCRINOLOGY: has not been on steroids Cardiology : denies palpitations or chest pain Respiratory: denies SOB or cough Hematology: denies history of prolonged bleeding or easy bruising or VTE Allergy: Denies history of personal or family history of allergy to anesthesia PHYSICAL EXAMINATION: VITALS: Blood pressure 124/78, pulse 91, resp. rate 16, height 168.9 cm (5' 6.5"), weight 95.7 kg (211 lb), SpO2 98%. GENERAL: The patient is well nourished, well hydrated in no acute distress. , The patient is oriented to time, place, and person. NECK: Supple. No lynphadenopathy, normal thyroid, no thyromegaly. LUNGS: Clear to auscultation bilaterally. no wheezes, rhonchi or rales HEART: Regular rate and rhythm, Normal heart sounds, and No murmurs or gallops pelvic US from 03/12/25 Indication postmenopausal bleeding Impression 1, Mobile fibroid uterus that changed po sition from anteverted to retroverted during evaluation. The uterus measures 89 mm x 56 mm x 58 mm. The 2 largest fibroids are described below. 2. The central endometrial complex measu res 6.2 mm in combined thickness and contains cystic areas along with a hyper echoic region near fundus measuring 8mm x 5mm. Endometrial pathology cannot be exc luded. 3. The right ovary measures 22 mm x 11 m m x 11 mm, and contains a 6 mm x 4 mm x 4 mm. Unilocular simple cyst (O-RADS 2) 4. Normal appearing left ovary. 5. No adnexal masses were observed. 6. There is no free fluid visualized in the peritoneal cavity. IMPRESSION: PMB PLAN: The risks/benefits/alternatives and personal involved for the planned hysteroscopy D&C with possible polyp resection were reviewed with the patient. Her questions were answered to her satisfaction and she desires to proceed. Consent was signed. I reviewed with her postop instructions and expectations. I have reviewed and updated past medical and surgical history, medications and allergies Assessment & Plan Assessment/Plan (1) PMB (postmenopausal bleeding):
[2025-05-13] VITALS (8 sets, daily range): BP systolic 98–122; BP diastolic 68–75; PULSE 84–88; RESP 12–18; TEMP 36.3–36.5; O2SAT 98–100; BMI 33.0
[2025-05-13] MEDS: Lactated Ringers 1,000 ML 15 ML IV (10:29)
[2025-05-13] MEDS: Ketorolac 30 MG/ML Syringe IV (10:29)
--- NOTE | 2025-05-13 10:39 | PRE.ANES_ITS ---
ASA Classification* ASA Classification ASA Classification: 2 (HTN, HLD, T2DM, KEITH) Assessment & Plan Anesthesia* Anesthesia Assessment Anesthesia Assessment: Discussed sedation and/or anesthesia options, risks, benefits, and alternatives with patient/parents/legal guardian/POA. Questions invited. The patient/parents/legal guardian/POA seems to understand and agrees to proceed with anesthesia plan. Reviewed the physical assessment, medical history, allergy history and patient home medications list prior to surgery/procedure/anesthetic and documented any changes. Performed airway and anesthesia risk assessments. Anesthesia Type Anesthesia Type: MAC History Source History Obtained from:: Patient and Chart Anesthesia Focused Assessment* Temperature: 97.7 F Pulse Rate: 86 Blood Pressure: 122/73 Respiratory Rate: 12 Pulse Ox: 98 Airway Assessment Mouth opens: >3 cm Mallampati Score: II Teeth Condition: Intact Neck Range of motion (ROM): Full ROM Labs Anesthesia Preop lab: CBC WBC, (4.4-11.0) 3.4 K/mm3 L 05/31/21, 18:10 RBC, (4.2-5.4) 4.98 M/mm3 05/31/21, 18:10 Hgb, (12.0-15.0) 14.2 g/dL 05/31/21, 18:10 Hct, (37-47) 41.9 % 05/31/21, 18:10 Plt Count, (150-450) 307 K/mm3 05/31/21, 18:10 CHEMISTRY Potassium, (3.5-5.1) 3.2 mmol/L L 05/31/21, 18:10 Sodium, (136-145) 139 mmol/L 05/31/21, 18:10 BUN, (7-18) 17 mg/dL 05/31/21, 18:10 Creatinine, (0.55-1.02) 0.73 mg/dL 05/31/21, 18:10 Glucose, (74-106) 150 mg/dL H 05/31/21, 18:10 POC Glucose, (70-110) 77 mg/dL 04/15/13, 22:41 COAG PT, (11.9-14.4) 11.8 SECONDS L 04/15/13, 18:40 Urine Test Negative Negative 02/26/19, 11:04 Pre-Assessment Diagnosis/Proposed Procedure Planned Operative Procedure(s): HYSTEROSCOPY D&C Anesthesia History Anesthesia History - waste/materials exchange specialist: Anesthesia History - waste/materials exchange specialist Hx Hospitalization No 05/07/25 10:52 Any Problems With Anesthesia No 05/07/25 10:52 Cholinesterase deficiency No 05/07/25 10:52 You/Your Family Experience No 05/07/25 10:52 fever (hyperthermia) with Relationship Recent Exposure to Contagious No 05/13/25 10:19 Disease Does patient have nerve No 05/07/25 10:52 stimulator Patient instructed to have device shut off --Does patient have Pacemaker No 05/13/25 10:19 or ICD? When Was Last Pacemaker Check QUESTION #4 FULL TEXT: You/Your Family Experience fever (hyperthermia) with Anesthesia Last Oral Intake Last Oral intake: Last Oral Intake NPO since 06:00 05/13/25 10:19 Meds taken in AM with sips of No 05/13/25 10:19 water? Meds patient instructed to take am of surgery PONV PONV - waste/materials exchange specialist: PONV - waste/materials exchange specialist Female Yes 05/07/25 10:52 HX of Motion Sickness No 05/07/25 10:52 HX of N/V After Surgery No 05/07/25 10:52 Non-Smoker Yes 05/07/25 10:52 Duration of Surgery greater No 05/07/25 10:52 than 60 minutes Number of Risk Factors 2 05/07/25 10:52 PONV Score Moderate Risk 05/07/25 10:52 Height & Weight Height & Weight: Anesthesia: Height & Weight Height 5 ft 7 in 05/13/25 10:19 Weight: 95.5 kg 05/13/25 10:19 Body Mass Index (BMI) 33.0 05/13/25 10:19 Respiratory Assessment Respiratory Assessment - waste/materials exchange specialist: Respiratory Tract Infection Hx - waste/materials exchange specialist Hx Respiratory Tract Infection No 05/07/25 10:52 STOP Sleep Apnea STOP Sleep Apnea - waste/materials exchange specialist: STOP Sleep Apnea - waste/materials exchange specialist Hx Hypertension Yes: TO START 05/07/25 05/07/25 10:52 Hx Sleep Apnea No: TO START HOME TEST 05/0705/07/25 10:52 CPAP BIPAP Do you snore loudly (louder No 05/07/25 10:52 than talking or can be heard Do you often feel tired/ Yes 05/07/25 10:52 fatigued/ sleepy during daytime? Has anyone observed you stop No 05/07/25 10:52 breathing during sleep? STOP Results Positive 05/07/25 10:52 QUESTION #5 FULL TEXT : Do you snore loudly (louder than talking or can be heard through closed doors)? Tobacco Use History Tobacco Use History - waste/materials exchange specialist: Tobacco Use History - waste/materials exchange specialist Tobacco Use Smoking Status Never smoker 05/07/25 10:52 Hx Tobacco Use No 05/07/25 10:52 Years Smoking Packs Smoked per Day Smoking Cessation Date was within the last 15 years Hx Smoking Cessation Date Hx Smoking Cessation Counseling Hematologic Medial History Hematologic Hx - waste/materials exchange specialist: Hematologic Medical Hx - pharmaceutical sales Hx of Blood Transfusion Yes 05/07/25 10:52 Hx of Transfusion in last 3 No 05/07/25 10:52 Months Date of Last Transfusion (if within last 3 months) Ever experience any problems No 05/07/25 10:52 with transfusion(s)? Specify any problems Hx of Preganancy in last 3 No 05/07/25 10:52 Months Nurse Filling Out Transfusion DSCHRIBER 05/07/25 10:52 & Questions: Date: 05/07/25 05/07/25 10:52 Time: 10:57 05/07/25 10:52 Patient unable to answer at this time (ie. confused, unrespo /Reproduction History /Reproductive History - waste/materials exchange specialist: /Reproductive Hx- waste/materials exchange specialist Hx Now No 05/07/25 10:52 Gestational Age (in weeks): EDC: Hx Hx Para Hx Section SAB No 05/07/25 10:52 Does the father of the baby or his family experience fever w Father of the baby Malignant Hypertension history comment Active Medications Active Medications: Current Medications Generic Name Dose Route Start Last Admin Trade Name Freq PRN Reason Stop Dose Admin Acetaminophen 500 mg 05/13/25 11:40 05/13/25 10:28 Acetaminophen 500 Mg Tablet PO 05/13/25 11:41 500 mg X1 ONE Administration Lactated Ringer's 1,000 mls @ 15 mls/hr 05/13/25 10:15 05/13/25 10:29 IV 15 mls/hr .Q48H NATHALIA Administration Ketorolac Tromethamine 30 mg 05/13/25 11:30 05/13/25 10:29 Ketorolac 30 Mg/Ml Syringe IV 05/13/25 11:31 30 mg X1 ONE Administration PFSH Medical History (Updated 05/12/25 @ 10:[address] Marleni Prescott MD) Sleep apnea Post-menopausal Alcohol use Diabetes Fatty liver Migraine headache High cholesterol Dietary restriction History of ulceration Non-smoker Hypertension Leg cramps Anemia Home Medications Medication Instructions Recorded Last Taken Type amlodipine 5 mg tablet 5 mg PO QHS 05/07/25 5 History metformin 500 mg tablet 1,000 mg PO BID 05/07/2511/29 History rosuvastatin 10 mg tablet 10 mg PO DAILY 05/07/25 Unkn own History Allergy/AdvReac Type Severity Reaction Status Date / Time No Known Allergies Allergy Verified 05/13/25 10:18 Surgical History (Updated 05/07/25 @ 11:01 by Francine Thomas) History of History of hysteroscopy Social History Smoking Status: Never smoker Review of Systems (Anesthesia) ROS Narrative System reviewed and no additional complaints, except as documented. Physical Exam Const alert, oriented x3 and average body habitus Resp normal respiratory effort, normal air movement and clear to auscultation bilaterally Cardio regular rate, regular rhythm, no murmurs and diaphoretic
[2025-05-13] MEDS: Midazolam 2 MG/2 ML Syringe IV (11:26)
[2025-05-13] MEDS: fentaNYL 100 MCG/2 ML Ampul 50 MCG IV (11:27)
[2025-05-13] MEDS: Lidocaine 1% (5 ml sdv) 5 ML Vial IV (11:29)
--- NOTE | 2025-05-13 11:30 | EMB_PTH ---
PATIENT: ELISE BRITO LOC: [facility] U#:[id number] AGE/SX: 55/F ROOM: RE05/13/[address]: Dr. Marleni Prescott MD : 1970 BED: DIS: 05/13/2025 SPEC #: [id number] RECD: 05/13/25 12:16 STATUS: MICHAEL BULLOCK #: [id number] TYLER: 05/13/25 11:[address]: Marleni Prescott DEPT: SURGICAL PATHOLOGY RECD BY: Chuck Nava Tissues: A - Endometrium, NOS Procedures: Surgery Specimen Level IV HEADER OPERATION: Hysteroscopy, D&C PRE-OP DIAGNOSIS: Post menopausal bleeding TISSUE SUBMITTED: A- Endometrial curettings and polyps MICROSCOPIC DIAGNOSIS A. Endometrium, curettage, polypectomy: - Fragments of proliferative endometrium, endometrial polyp, lower uterine segment, and myometrium. MICROSCOPIC DESCRIPTION Slides are reviewed. GROSS DESCRIPTION A. Received in formalin labeled with the patient's name and date of . Designated as "endometrial curetting and polyps" is a 4.5 x 2.0 x 0.4 cm aggregate of breswter-pink irregular, rubbery tissue fragments. Entirely submitted in 2 cassettes. MO 05/13/2025 CPT:94126
[2025-05-13] MEDS: Lidocaine 1% /Epi 1:100 (20ml) 20 ML Vial (11:41)
--- NOTE | 2025-05-13 12:03 | PCM.DC ---
Discharge Instructions DC O2, CPAP, BIPAP needs Home O2 Discharge instructions: No Dressing / Incision Discharge Activity: May Shower and May Take a Tub Bath (in 1 week) May resume sexual activity in: 1 week Lifting Restrictions: none Dressing / Incision Call your doctor if your incision/area has: Sudden Increased Bleeding and Foul Smelling Discharge Call your doctor if you observe: Fever of 101 or Higher and Using more than 1 pad per hour (for 2 hrs in a row) Follow Up Care Please Follow Up With: Marleni Prescott MD When: You do not need a postop appointment. Contact the office via [employer] or call [phone] as needed for questions. Test Results: Test results from this visit will be discussed in further detail at your follow-up appointment, if applicable. Discharge Plan Admission Primary Reason for Your Visit: Hysteroscopy D&C with polyp resection Attending Provider: Marleni Prescott Primary Care Provider: Lizzy Dasilva Instructions Print Language: Citizen Of [place] Discharge Orders/Prescriptions Prescriptions: Continued metformin 500 mg tablet 1,000 mg PO BID amlodipine 5 mg tablet 5 mg PO QHS Patient Comments: TO START ON 05/07/25 rosuvastatin 10 mg tablet 10 mg PO DAILY Patient Comments: TO START 05/07/25 PER PATIENT Referrals / Follow Up: Lizzy Dasilva MD [Primary Care Provider, Family Practice] Disposition Disposition (needs filled in before D/C Order can be placed): Home, Self Care
--- NOTE | 2025-05-13 12:04 | PCM.POST.ANE ---
Anesthesia: Postop Eval I Current Vital Signs Temperature: 97.7 F Pulse Rate: 88 Blood Pressure: 98/71 Respiratory Rate: 16 Pulse Ox: 100 Oxygen Delivery Method: Room Air Assessment Airway patent: Yes Spontaneous unlabored respirations: Yes Mental status: Awake and Calm nausea: No Vomiting: No Anesthesia Complication: No Fluid Hydration Crystalloid volume administer (ml): 600 Total IV fluid infused: 600 Progress Note Anesthesia document: Postop Eval 1 completed: Yes
--- NOTE | 2025-05-13 13:51 | POSTOPAN2_ITS ---
Anesthesia Postop Eval I Sum Postop Eval Completion status Anesthesia document: Postop Eval 1 completed: Yes Anesthesia Postop Eval I Summary Anesthesia Postop Eval I Summary: Anesthesia Postop Eval I: Assessment Summary Airway patent Yes 05/13/25 12:05 EDUCATIONAL [email or web address].[email or web address] Spontaneous unlabored Yes 05/13/25 12:05 EDUCATIONAL ADMINISTRATOR.[email or web address] respirations Mental status Awake,Calm 05/13/25 12:05 EDUCATIONAL [email or web address].[email or web address] nausea No 05/13/25 12:05 EDUCATIONAL ADMINISTRATOR.[email or web address] Vomiting No 05/13/25 12:05 EDUCATIONAL [email or web address].[email or web address] Anesthesia Postop Eval I: Fluid Summary Crystalloid volume administer 600 05/13/25 12:05 EDUCATIONAL [email or web address].GDOTT (ml) Colloids volume administered ( ml) Blood Product volume administered (ml) Total IV fluid infused 600 05/13/25 12:05 EDUCATIONAL ADMINISTRATOR.GDOTT Anesthesia Postop Eval I: Summary Notes Anesthesia Complication No 05/13/25 12:05 EDUCATIONAL [email or web address].[email or web address] Anesthesia Complication Comment: Post-operative progress note Anesthesia: Postop Eval II Evaluation Mental status: Awake Pain Level: 0 nausea: No Vomiting: No Complications Anesthesia Complication: No
--- NOTE | 2025-05-13 13:51 | PCM.POSTANE2 ---
Anesthesia Postop Eval I Sum Postop Eval Completion status Anesthesia document: Postop Eval 1 completed: Yes Anesthesia Postop Eval I Summary Anesthesia Postop Eval I Summary: Anesthesia Postop Eval I: Assessment Summary Airway patent Yes 05/13/25 12:05 [email or web address] Spontaneous unlabored Yes 05/13/25 12:05 [email or web address] respirations Mental status Awake,Calm 05/13/25 12:05 [email or web address] nausea No 05/13/25 12:05 [email or web address] Vomiting No 05/13/25 12:05 [email or web address] Anesthesia Postop Eval I: Fluid Summary Crystalloid volume administer 600 05/13/25 12:05 [email or web address] (ml) Colloids volume administered ( ml) Blood Product volume administered (ml) Total IV fluid infused 600 05/13/25 12:05 [email or web address] Anesthesia Postop Eval I: Summary Notes Anesthesia Complication No 05/13/25 12:05 [email or web address] Anesthesia Complication Comment: Post-operative progress note Anesthesia: Postop Eval II Evaluation Mental status: Awake Pain Level: 0 nausea: No Vomiting: No Complications Anesthesia Complication: No
--- NOTE | 2025-05-15 10:30 | OP.PCM_ITS ---
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 Senior Business Development Analyst: Kirill Watson [email or web address] Tasks completed by state tested nursing assistant: Retracting Type of Anesthesia: MAC/Supplemental/Local RN Documented Start/Stop Times: Operation Date: 05/13/25 11:30 Case Time Into Pre-Op 05/13/25 10:06 Anesthesia Start 05/13/25 11:24 Into Room 05/13/25 11:24 Out of Pre-Op 05/13/25 11:24 Procedure Start 05/13/25 11:41 Procedure End 05/13/25 11:52 Anesthesia End 05/13/25 12:00 Out of Room 05/13/25 12:00 Into Recovery 05/13/25 12:02 Out of Recovery 05/13/25 12:19 Into Phase II Recovery 05/13/25 12:20 Out of Phase II 05/13/25 13:01 Procedure Start Time: 11:41 Procedure Stop Time: 11:52 Select all DRAINS/GRAFTS/IMPLANTS that apply: None Estimated Blood Loss: 10 Fluids Replaced: 600 cc LR Specimen collected: Yes Description of specimen(s) removed: endometrial curetting and polyp Description of surgery: The patient was taken to the OR where she was prepped and draped in dorsal lithotomy position. The weighted speculum was placed in the vagina and the anterior lip of the cervix was grasped with a single-tooth tenaculum. A pa racervical block was administered with [1% lidocaine with 1-100,000 epinephrine solution]. The cervix was dilated serially with Hegar dilators. The Symphion hysteroscope was placed into the uterine cavity and the above findings were noted. Bilateral tubal ostia [were] identified. The Symphion resection device was readied and inserted. The polyp was removed in its entirety and then a visual D&C was done of the endometrium. The endometrium otherwise appeared atrophic and thin. No other focal abnormalities were noted.. The instruments were removed from the vagina. The specimen was handed off and sent to pathology. All sponge and needle counts were correct. Vaginal sweep was performed by me. The patient was awakened and taken to the recovery room in stable condition. Calculated fluid deficit was less than 700 cc of normal saline Surgical Findings: Normal cervix and vagina. Atrophic endometrium with polypoid lesion appearing in the fundus. Both tubal ostia seen. No other focal abnormalities. Complications Complications: No Admit VTE Documentation VTE Present on Admission: No VTE Mechan Device Prophylaxis: SCD's VTE Pharm Prophylaxis ordered?: No
== END 2025-05-13 13:01 | disposition home or self-care (01) ==
LOC: SDC 09:56 → AC 09:57
PROVIDERS: PCP Pediatrics; Referring Provider Obstetrics & Gynecology; Visit Provider Obstetrics & Gynecology
DX: N84.0 Polyp of corpus uteri (principal); E11.9 Type 2 diabetes mellitus without complications; N95.0 Postmenopausal bleeding; Z79.899 Other long term (current) drug therapy; E78.00 Pure hypercholesterolemia, unspecified; I10 Essential (primary) hypertension; Z79.84 Long term (current) use of oral hypoglycemic drugs
CPT/HCPCS: 58558; 00952; 82962; 88305; J2405